=== PATIENT | male | born 1975 | race Caucasian/White ===

== ENCOUNTER 2016-08-27 07:12 | Emergency (ER) | payer MEDICAID ==
[~2016-08-27] VITALS: Ht 175.3 cm; Wt 97.2 kg
[~2016-08-27 07:12] MED LIST: IBU800 M1 PO; PAX20 PO
[2016-08-27 09:06] VITALS: BP 136/83
== END 2016-08-27 09:06 | disposition home or self-care (01) ==
LOC: ED 07:12
DX: F41.9 Anxiety disorder, unspecified (principal); G47.00 Insomnia, unspecified; R03.0 Elevated blood-pressure reading, without diagnosis of hypertension

== ENCOUNTER 2016-08-30 06:53 | Emergency (ER) | payer MEDICAID ==
[2016-08-30 08:01] LABS: CALCIUM 8.6 mg/dL (8.5-10.1); CARBON DIOXIDE 27.8 mmol/L (21-32); CHLORIDE SERUM 106 mmol/L (98-107); CREATININE SERUM 0.8 mg/dL (0.7-1.3); GFR1 > 60 mL/min; GLUCOSE SERUM 98 mg/dL (74-106); POTASSIUM SERUM 3.7 mmol/L (3.5-5.1); SODIUM SERUM 143 mmol/L (136-145)
[2016-08-30 08:07] LABS: ALKALINE PHOSPHATASE 86 U/L (46-116); ALT/SGPT 33 U/L (16-63); AST/SGOT 18 U/L (15-37); BILIRUBIN TOTAL 0.9 mg/dL (0.20-1.00); TOTAL PROTEIN, SERUM 7.3 g/dL (6.4-8.2)
[2016-08-30 09:03] VITALS: BP 131/75
== END 2016-08-30 09:03 | disposition home or self-care (01) ==
LOC: ED 06:53
PROVIDERS: Emergency Medicine
DX: F41.9 Anxiety disorder, unspecified (principal)

== ENCOUNTER 2016-10-10 08:28 | Emergency (ER) | payer MEDICAID ==
[~2016-10-10] VITALS: Ht 175.3 cm; Wt 91.2 kg
[2016-10-10 09:20] LABS: BASOPHIL % 0.7 % (0-2); PLATELET COUNT 167 x10^3mcL (130-400); RED CELL DISTRIBUTION WIDTH 13.4 % (11.5-14.5)
[2016-10-10 09:25] LABS: CALCIUM 8.7 mg/dL (8.5-10.1); CARBON DIOXIDE 29.7 mmol/L (21-32); CHLORIDE SERUM 103 mmol/L (98-107); CREATININE SERUM 0.9 mg/dL (0.7-1.3); GFR1 > 60 mL/min; GLUCOSE SERUM 124 mg/dL (74-106); POTASSIUM SERUM 3.4 mmol/L (3.5-5.1); SODIUM SERUM 139 mmol/L (136-145)
[2016-10-10 09:30] LABS: ALBUMIN 3.8 g/dL (3.4-5.0); ALKALINE PHOSPHATASE 88 U/L (46-116); ALT/SGPT 33 U/L (16-63); AST/SGOT 15 U/L (15-37); BILIRUBIN TOTAL 0.6 mg/dL (0.20-1.00); TOTAL PROTEIN, SERUM 7.2 g/dL (6.4-8.2)
[2016-10-10 10:26] VITALS: BP 107/64
== END 2016-10-10 10:26 | disposition home or self-care (01) ==
LOC: ED 08:28
PROVIDERS: Emergency Medicine
DX: F41.1 Generalized anxiety disorder (principal)
CPT/HCPCS: 83880; J2060; Q0092

== ENCOUNTER 2016-11-18 22:49 | Emergency (ER) | payer MEDICAID ==
[2016-11-18 23:31] LABS: BASOPHIL % 0.7 % (0-2); PLATELET COUNT 154 x10^3mcL (130-400); RED CELL DISTRIBUTION WIDTH 13.7 % (11.5-14.5)
[2016-11-18 23:35] LABS: CALCIUM 8.3 mg/dL (8.5-10.1); CARBON DIOXIDE 26.5 mmol/L (21-32); CHLORIDE SERUM 103 mmol/L (98-107); CREATININE SERUM 0.9 mg/dL (0.7-1.3); GFR1 > 60 mL/min; GLUCOSE SERUM 116 mg/dL (74-106); POTASSIUM SERUM 3.3 mmol/L (3.5-5.1); SODIUM SERUM 140 mmol/L (136-145)
[2016-11-18 23:41] LABS: ALBUMIN 3.7 g/dL (3.4-5.0); ALKALINE PHOSPHATASE 98 U/L (46-116); ALT/SGPT 27 U/L (16-63); AST/SGOT 14 U/L (15-37); BILIRUBIN TOTAL 0.4 mg/dL (0.20-1.00); TOTAL PROTEIN, SERUM 6.8 g/dL (6.4-8.2)
[2016-11-19 00:30] VITALS: BP 111/86
== END 2016-11-19 00:30 | disposition home or self-care (01) ==
LOC: ED 22:49
PROVIDERS: Emergency Medicine
DX: R42 Dizziness and giddiness (principal); R20.2 Paresthesia of skin
CPT/HCPCS: 36415; J8597; Q0092

== ENCOUNTER 2017-01-15 16:41 | Emergency (ER) | payer MEDICAID ==
[~2017-01-15] VITALS: Ht 175.3 cm; Wt 86.6 kg
[2017-01-15 19:19] VITALS: BP 112/70
== END 2017-01-15 19:19 | disposition home or self-care (01) ==
LOC: ED 16:41
DX: S20.212A Contusion of left front wall of thorax, initial encounter (principal); T41.45XA Adverse effect of unspecified anesthetic, initial encounter; W01.0XXA Fall on same level from slipping, tripping and stumbling without subsequent striking against object, initial encounter; Y93.89 Activity, other specified; Y92.89 Other specified places as the place of occurrence of the external cause; Y99.8 Other external cause status

== ENCOUNTER 2017-04-24 10:17 | Emergency (ER) | payer MEDICAID ==
[~2017-04-24] VITALS: Ht 175.3 cm; Wt 88.9 kg
[2017-04-24 10:25] VITALS: Ht 175.3 cm; Wt 88.9 kg
[2017-04-24 10:50] VITALS: BP 121/78
== END 2017-04-24 10:50 | disposition home or self-care (01) ==
LOC: ED 10:17
DX: L30.9 Dermatitis, unspecified (principal)

== ENCOUNTER 2019-11-24 11:19 | Emergency (ER) | payer MEDICAID, SELFPAY ==
[~2019-11-24] VITALS: Ht 175.3 cm; Wt 104.3 kg
[2019-11-24 11:22] VITALS: BP 122/80; Ht 175.3 cm; Wt 104.3 kg
== END 2019-11-24 11:58 | disposition home or self-care (01) ==
LOC: ED 11:19
DX: U07.1 COVID-19 (principal); B34.9 Viral infection, unspecified
CPT/HCPCS: U0003-CS